=== PATIENT | female | born 1975 | race Caucasian/White ===

== ENCOUNTER 2020-04-30 15:50 | Emergency (ER) | payer OTHER ==
[~2020-04-30 15:50] MED LIST: ASPIRIN CHEWABL81 MG PO; BUSPAR 10MG10 MG PO; FENOFIBRATE PO; GLUCOPHAGE500 MG PO; IMDUR ER TAB 6060 MG PO; KEPPRA1000 MG PO; LASIX20 MG PO; NEURONTIN 300300 MG PO; PRINIVIL10 MG PO; REMERON15 MG PO; TOPROL XL25 MG PO; ZYPREXA10 MG PO
== END 2020-04-30 19:30 | disposition left against medical advice (07) ==
LOC: ER1 15:50
DX: R10.9 Unspecified abdominal pain (principal); R11.0 Nausea; Z53.21 Procedure and treatment not carried out due to patient leaving prior to being seen by health care provider